=== PATIENT | female | born 1975 | race Hispanic/Latino ===

== ENCOUNTER 2018-06-30 16:54 | Emergency (ER) | payer OTHER, SELFPAY ==
[2018-06-30 17:44] LABS: Bilirubin Negative (Negative); Blood, Urine Negative (Negative); Clarity CLEAR (Clear); Glucose, Urine (Dipstick) Negative (Negative); Leukocyte Negative (Negative); Nitrite Negative (Negative); Protein, Urine (Dipstick) Negative (Neg-Trace); Specific Gravity, Urine 1.008 (1.002-1.036); Urobilinogen 0.2 mg/dL (0.2-1.0)
--- NOTE | 2018-06-30 19:01 | ULT ---
PELVIC SONOGRAM: HISTORY: Pelvic pain. Dysuria. TECHNIQUE: Transabdominal and transvaginal imaging. FINDINGS: The urinary bladder is decompressed. The uterus and ovaries are surgically absent. No free fluid or mass is apparent. IMPRESSION: 1. Status post hysterectomy. 2. No significant abnormalities are demonstrated. POS: [facility]
== END 2018-06-30 18:40 | disposition home or self-care (01) ==
LOC: ERS 16:54
DX: R30.0 Dysuria (principal); R10.2 Pelvic and perineal pain; E78.5 Hyperlipidemia, unspecified; F41.9 Anxiety disorder, unspecified; F17.210 Nicotine dependence, cigarettes, uncomplicated
CPT/HCPCS: 76856; 81003

== ENCOUNTER 2021-09-06 07:44 | Outpatient (CLI) | payer OTHER | END 2021-09-06 07:45 | disposition home or self-care (01) | LOC: CT 07:44 | PROVIDERS: ATTEND Physician Assistant Medical | DX: R79.89 Other specified abnormal findings of blood chemistry (principal); R11.2 Nausea with vomiting, unspecified; K31.84 Gastroparesis; K59.09 Other constipation; K76.0 Fatty (change of) liver, not elsewhere classified | CPT/HCPCS: 74170 ==

== ENCOUNTER 2024-06-25 15:06 | Outpatient (CLI) | payer OTHER | END 2024-06-25 15:07 | disposition home or self-care (01) | LOC: ULT 15:06 | PROVIDERS: ATTEND Family Medicine | DX: M79.89 Other specified soft tissue disorders (principal) ==

== ENCOUNTER 2025-04-26 21:21 | Emergency (ER) | payer OTHER ==
[2025-04-26] MEDS ORDERED: HYDROcodone/Acetaminophen 5/325 mg Tablet ONE (23:37)
== END 2025-04-27 00:05 | disposition home or self-care (01) ==
LOC: ERS 21:21
DX: S86.912A Strain of unspecified muscle(s) and tendon(s) at lower leg level, left leg, initial encounter (principal); S86.911A Strain of unspecified muscle(s) and tendon(s) at lower leg level, right leg, initial encounter; E11.9 Type 2 diabetes mellitus without complications; F17.210 Nicotine dependence, cigarettes, uncomplicated; F17.290 Nicotine dependence, other tobacco product, uncomplicated; X58.XXXA Exposure to other specified factors, initial encounter
CPT/HCPCS: 93970